=== PATIENT | male | born 1945 | race Caucasian/White ===

== ENCOUNTER 2017-05-21 10:36 | Outpatient (CLI) | payer MEDICARE ==
[2017-05-21 11:45] LABS: #Eosinphils 0.1 thou/uL (0.0-0.7); #Lymphocytes 1.3 thou/uL (1.20-3.40); #Monocytes 0.3 thou/uL (0.11-0.59); #Neutrophils 3.4 thou/uL (1.40-6.50); %Basophils 0.3 % (0.0-1.0); %Eosinophils 1.3 % (0.0-10.0); %Lymphocytes 25.6 % (21.0-51.0); %Monocytes 6.1 % (0.0-10.0); %Neutrophils 66.8 % (42.0-75.0); Hemoglobin 15.1 g/dL (14.0-18.0); Mean Corpuscular HGB CONC 35.4 g/dL (32.0-36.0); Mean Corpuscular Hemoglobin 33.4 pg (27.0-31.0); Mean Corpuscular Volume 94.2 fl (80.0-94.0); Mean Platelet Volume 6.7 fL (7.4-10.4); Platelet Count 219 thou/uL (130-400); RBC Distribution Width 11.6 % (11.5-14.5); Red Blood Cell (RBC) Count 4.54 mill/uL (4.70-6.10); White Blood Cell (WBC) Count 5.1 thou/uL (4.8-10.8)
[2017-05-21 12:11] LABS: Anion Gap 10 mmol/L (10-20); BUN (Urea Nitrogen) 16 mg/dL (8.4-25.7); Calc. Creatinine Clearance 0 mL/min (70-130); Calcium 9.8 mg/dL (7.8-10.44); Carbon Dioxide 26 mmol/L (23-31); Chloride 106 mmol/L (98-107); Estimated GFR-MDRD Greater than 90; Glucose 99 mg/dL (80-115); Potassium 4.7 mmol/L (3.5-5.1); Sodium 137 mmol/L (136-145)
== END 2017-05-21 10:37 | disposition home or self-care (01) ==
LOC: LABBT 10:36
PROVIDERS: ATTEND Surgery
DX: Z01.818 Encounter for other preprocedural examination (principal); K40.90 Unilateral inguinal hernia, without obstruction or gangrene, not specified as recurrent
CPT/HCPCS: 80048; 85025; 93005; 93010

== ENCOUNTER 2017-05-29 05:48 | Day surgery (SDC) | payer MEDICARE ==
[2017-05-21 10:56] VITALS: BMI 25.7
[2017-05-29] MEDS ORDERED: CEFAZOLIN/Water 2 GM/20 ML SYRINGE ONE (06:18)
[2017-05-29] MEDS ORDERED: Bupivacaine/Epinephrine 0.25% 30 ML VIAL ONE (06:32)
[2017-05-29] MEDS ORDERED: Promethazine HCl 25 MG/ML VIAL IM PRN (07:01)
[2017-05-29] MEDS ORDERED: Ondansetron HCl/PF 4 MG/2 ML Vial IVP PRN (07:01)
[2017-05-29] MEDS ORDERED: Promethazine HCl 25 MG/ML VIAL SLOW IVP PRN (07:01)
[2017-05-29] MEDS ORDERED: Fentanyl 100 MCG/2 ML VIAL ONE ×3 (07:05→09:21)
[2017-05-29] MEDS ORDERED: Midazolam HCl 2 mg/2 ml Vial ONE (07:13)
--- NOTE | 2017-05-29 11:00 | OP ---
DATE OF PROCEDURE: 05/29/2017 PREOPERATIVE DIAGNOSIS: Left inguinal hernia. POSTOPERATIVE DIAGNOSIS: Bilateral inguinal hernia. PROCEDURE PERFORMED: Da Kasi laparoscopic bilateral inguinal hernia repair with mesh, [place]. SURGEON: Josh Ewing M.D. ANESTHESIA: General. ESTIMATED BLOOD LOSS: Minimal. COMPLICATIONS: None. SPECIMEN: None. FINDINGS: Bilateral inguinal hernia. TECHNIQUE: The patient was taken to the operating room and placed supine on the table. After genera l anesthetic was obtained, a Guerrero was placed. The abdomen was shaved, prepped and draped in a steri le fashion. Curved incision made above the umbilicus. Cautery was used to dissect down to and score the fascia. Abdominal cavity was entered using a 12-mm Ethicon trocar. High-flow pneumoperitoneum was obtained. The patient was placed in Trendelenburg position. Right and left 8 mm robot trocars w ere placed. All ports were docked to the robot. Surgeon goes to the console. The peritoneum was ta cornelio down in the bilateral groins. The preperitoneal space was bluntly dissected and entered in the b ilateral groin. Full dissection was performed in the bilateral preperitoneal space, including the pu bic tubercle medially, anterior superior iliac crest laterally, iliopectineal line all the way. Ther e was an indirect hernia on each side that was dissected out and high upon to the peritoneum. The Pr oGrip mesh was brought into the sterile field, folded and the right and left meshes were placed with the medial aspect over the pubic tubercle. The mesh was unfolded to fully cover the direct, indirect and femoral areas. The peritoneum was reapproximated and the bilateral groin using running Stratafi x suture. All port sites were infiltrated using local anesthetic. All ports were removed under came ra visualization without bleeding. PDS was used to close the fascial defect above the umbilicus. Al l incisions were irrigated and closed using 4-0 Monocryl and Dermabond. The patient was en route to recovery in stable condition. All instrument counts, needle counts, and lap counts are correct.
[2017-05-29] MEDS ORDERED: Glycopyrrolate 0.2 MG/ML 5 ML SYRINGE ONE (11:11)
[2017-05-29] MEDS ORDERED: Ondansetron HCl/PF 4 MG/2 ML Vial ONE (11:11)
[2017-05-29] MEDS ORDERED: Lidocaine 1% PF 5 ML VIAL ONE (11:11)
[2017-05-29] MEDS ORDERED: Propofol 200 MG/20 ML VIAL ONE (11:11)
[2017-05-29] MEDS ORDERED: Ketorolac Tromethamine 30 MG/ML VIAL ONE (11:11)
[2017-05-29] MEDS ORDERED: Dexamethasone 20 MG/5 ML VIAL ONE (11:11)
== END 2017-05-29 11:00 | disposition home or self-care (01) ==
LOC: SDC 05:48
PROVIDERS: ATTEND Surgery
PROC: 0YUA4JZ Supplement Bilateral Inguinal Region with Synthetic Substitute, Percutaneous Endoscopic Approach (ICD-10-PCS; principal; 2017-05-29)
DX: K40.20 Bilateral inguinal hernia, without obstruction or gangrene, not specified as recurrent (principal); Z85.828 Personal history of other malignant neoplasm of skin; Z98.890 Other specified postprocedural states
CPT/HCPCS: 96374; J1100; J1885; J2001; J2250; J2405; J2704; J3010